=== PATIENT | female | born 1960 | race Two or more races ===

== ENCOUNTER 2019-01-02 10:18 | Emergency (ER) | payer MEDICAID ==
[~2019-01-02] VITALS: Ht 152.4 cm; Wt 79.8 kg
--- NOTE | 2019-01-02 10:40 | NUR ---
PATIENT C/O SOB, WAS AT [facility] 1 WEEK AGO FOR SAME REASON AND TREATED FOR ANXIETY. PATIENT A/OX3, CALM AND COOPERATIVE AT THIS TIME, DENIES SOB, PLACED ON THE MONITOR, VSS, WILL MONITOR.
[2019-01-02 10:46] LABS: BASOPHILS % (AUTO) 0.6 % (0.0-2.0); EOSINOPHILS % (AUTO) 0.5 % (0.0-6.0); HEMATOCRIT 40 % (33-45); LYMPHOCYTES # (AUTO) 0.8 /CMM (0.8-4.8); LYMPHOCYTES % (AUTO) 17.8 % (20.0-44.0); MEAN CORPUSCULAR HGB CONC 35 g/dl (31.0-36.0); MEAN CORPUSCULAR VOLUME 89 fL (82-100); MONOCYTES # (AUTO) 0.2 /CMM (0.1-1.30); MONOCYTES % (AUTO) 5.1 % (2.0-12.0); NEUTROPHILS # (AUTO) 3.6 /CMM (1.8-8.9); PLATELET COUNT (AUTO) 316 /CMM (150-450); RED BLOOD CELL COUNT(AUTO) 4.51 MIL/uL (4.0-5.2); WHITE BLOOD COUNT (AUTO) 4.8 K/uL (4.3-11.0)
[2019-01-02 10:52] LABS: CALCIUM, SERUM 9.1 mg/dL (8.5-10.1); CARBON DIOXIDE 24 mmol/L (21-32); CHLORIDE 102 mmol/L (98-107); CREATININE 0.8 mg/dL (0.6-1.3); GLUCOSE 222 mg/dL (74-106); POTASSIUM 3.7 mmol/L (3.5-5.1); SODIUM SERUM 137 mmol/L (136-145); UREA NITROGEN, BLOOD 10 mg/dL (7-18)
--- NOTE | 2019-01-02 11:08 | NUR ---
PT TAKEN TO RADIOLOGY VIA [facility]
[2019-01-02] MEDS ORDERED: IOHEXOL-350 100 ML VIAL IV ONE (11:10)
--- NOTE | 2019-01-02 11:30 | NUR ---
PT BACK FROM RADIOLOGY. C/O SUDDEN ITCHY, RED SPOT ABOVE RIGHT EYE. AWARE
[2019-01-02] MEDS ORDERED: LORA-259 PO (11:36)
[2019-01-02] MEDS ORDERED: ALPR0.255 PO (11:41)
[2019-01-02 11:54] VITALS: BP 138/91
--- NOTE | 2019-01-02 12:01 | NUR ---
PT WILL BE ADMITTED
[2019-01-02] MEDS ORDERED: FUROSEMIDE 40 MG/4 ML VIAL IV SCH (12:30)
--- NOTE | 2019-01-02 12:45 | NUR ---
SPOKE WITH [facility], GIORGIO, FOR UPDATE. PT MAY BE TRANSFERRED TO [facility] Addendum: 01/02/19 at 1249 by CHRISTOS PT MIGHT BE TRANSFERRED
--- NOTE | 2019-01-02 13:20 | NUR ---
PT TO [place] TO [facility], ACCEPTED BY BY [facility] TRIP # [id number], ETA [id number].
--- NOTE | 2019-01-02 14:04 | NUR ---
REPORT GIVEN TO [facility] EMT FOR TRANSPORT
--- NOTE | 2019-01-02 14:43 | NUR ---
REPORT GIVEN TO LIT JOSE AT [facility] FOR [id number]
== END 2019-01-02 14:50 | disposition short-term general hospital (02) ==
LOC: ER 10:21
DX: I44.7 Left bundle-branch block, unspecified (principal); R06.00 Dyspnea, unspecified; Z79.899 Other long term (current) drug therapy
CPT/HCPCS: 36415; 71045; 71275; 80048; 84484; 85025; 87081; 93005; 93307; 99285; Q9967